=== PATIENT | male | born 1980 | race Caucasian/White ===

== ENCOUNTER 2019-01-01 12:53 | Inpatient (IN) | payer OTHER ==
[2019-01-01 13:44] VITALS: BMI 21.9
--- NOTE | 2019-01-01 15:34 | HP ---
CIWA Score - Admission Criteria [facility] Guidelines: Admission for Medically Managed Detox: Requires at least one of the followin. CIWA greater than 12 2. Seizures within the past 24 hours 3. Delirium tremens within the past 24 hours 4. Hallucinations within the past 24 hours 5. Acute intervention needed for co occurring medical disorder 6. Acute intervention needed for co occurring psychiatric disorder 7. Severe withdrawal that cannot be handled at a lower level of care (continued vomiting, continued diarrhea, abnormal vital signs) requiring intravenous medication and/or fluids 8. Admission ROS [facility] Chief Complaint: PATIENT PRESENTS FOR REHAB SERVICES FOR K2 DEPENDENCE. Allergies/Adverse Reactions: Allergies Allergy/AdvReac Type Severity Reaction Status Date / Time No Known Allergies Allergy Verified 01/01/19 14:32 History of Present Illness: PATIENT PRESENTS WITH K 2 DEPENDENCE. PATIENT HAS BEEN SMOKING K2 FOR 5 YEARS AND STATES HE ATTENDED REHAB OVER 3 YEARS AGO. PATIENT DENIES H/O SEIZURES, BLACK OUTS, FALLS AND USE OF OTHER SUBSTANCES. UDS NEGATIVE. PMH INCLUDES SCHIZOPHRENIA, DEPRESSION AND TOBACCO USE. SMOKES 1PPD/ 20 YEARS. DENIES SI/HI AND SUICIDE ATTEMPTS. REPORTS BEING ON PSYCH MEDS BUT EXTERNAL HX NEGATIVE AND PATIENT DOES NOT PRESENT WITH MEDICATIONS. Exam Limitations: No Limitations - Ebola screening Have you traveled outside of the country in the last 21 days: No Have you had contact with anyone from an Ebola affected area: No Have you been sick,other than usual withdrawal symptoms: No - Review of Systems Constitutional: Unintentional Wgt. Loss EENT: reports: No Symptoms Reported Respiratory: reports: No Symptoms reported Cardiac: reports: No Symptoms Reported GI: reports: No Symptoms Reported : reports: No Symptoms Reported Musculoskeletal: reports: No Symptoms Reported Integumentary: reports: [place] Neuro: reports: No Symptoms reported Endocrine: reports: Unexplained Weight Loss Hematology: reports: No Symptoms Reported Psychiatric: reports: Orientated x3, Depressed Patient History - Patient Medical History Hx Anemia: No Hx Asthma: No Hx Chronic Obstructive Pulmonary Disease (COPD): No Hx Cancer: No Hx Cardiac Disorders: No Hx Congestive Heart Failure: No Hx Hypertension: No Hx Hypercholesterolemia: No Hx Pacemaker: No HX Cerebrovascular Accident: No Hx Seizures: No Hx Dementia: No Hx Diabetes: No Hx Gastrointestinal Disorders: No Hx Liver Disease: No Hx Genitourinary Disorders: No Hx Sexually Transmitted Disorders: No Hx Renal Disease (ESRD): No Hx Thyroid Disease: No Hx Human Immunodeficiency Virus (HIV): No Hx Hepatitis C: No Hx Depression: Yes Hx Suicide Attempt: No Hx Bipolar Disorder: No Hx Schizophrenia: Yes (schizoaffective disorder) - Patient Surgical History Past Surgical History: Yes Hx Neurologic Surgery: No Hx Cataract Extraction: No Hx Cardiac Surgery: No Hx Lung Surgery: No Hx Breast Surgery: No Hx Breast Biopsy: No Hx Abdominal Surgery: No Hx Appendectomy: No Hx Cholecystectomy: No Hx Genitourinary Surgery: No Hx Orthopedic Surgery: No Other Surgical History: fx, nose at age 28 Anesthesia Reaction: No - PPD History Previous Implant?: Yes Documented Results: Negative w/o proof Implanted On Prior R Admission?: No PPD to be Administered?: Yes - Smoking Cessation Smoking history: Current every day smoker Have you smoked in the past 12 months: Yes Aproximately how many cigarettes per day: 20 Hx Chewing Tobacco Use: No Initiated information on smoking cessation: Yes 'Breaking Loose' booklet given: 01/01/19 - Substances Abused K2 Route: Smoking Frequency: Daily Amount used: $9 Age of first use: 28 Date of Last Use: 12/31/18 Family Disease History - Family Disease History Family Disease History: Other: Grandparent (mental illness, maternal) Admission Physical Exam BHS - Vital Signs Vital Signs: Vital Signs - 24 hr 01/01/19 13:42 Temperature 97.7 F Pulse Rate 72 Respiratory 18 Rate Blood Pressure 126/71 - Physical General Appearance: Yes: No Apparent Distress, Disheveled HEENTM: Yes: EOMI, Hearing grossly Normal, Normal ENT Inspection, Normocephalic , Normal Voice, JAYA, Pharynx Normal Respiratory: Yes: Chest Non-Tender, Lungs Clear, Normal Breath Sounds, No Respiratory Distress, No Accessory Muscle Use Neck: Yes: Within Normal Limits, No masses,lesions,Nodules, Supple, Trachea in good position Breast: Yes: Breast Exam Deferred Cardiology: Yes: Regular Rhythm, Regular Rate, S1, S2 Abdominal: Yes: Normal Bowel Sounds, Non Tender, Soft Genitourinary: Yes: Within Normal Limits Back: Yes: Normal Inspection Musculoskeletal: Yes: Within Normal Limits, full range of Motion, Gait Steady Extremities: Yes: Within Normal Limits, Normal Inspection, Normal Range of Motion, Non-Tender 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 NML intact, Fully Oriented, Alert, Motor Strength 5/5, Normal Response, Depressed Affect Integumentary: Yes: Dry, Warm, Erythema Lymphatic: Yes: Within Normal Limits - Diagnostic (1) Synthetic cannabinoid dependence Current Visit: Yes Status: Chronic (2) Schizophrenia Current Visit: Yes Status: Suspected Qualifiers: Schizophrenia type: unspecified Qualified Code(s): F20.9 - Schizophrenia, unspecified (3) Tobacco dependence Current Visit: Yes Status: Chronic (4) Depressed mood Current Visit: Yes Status: Chronic Cleared for Admission [facility] - Detox or Rehab Claeared for Rehab Admission: Yes [facility] Breath Alcohol Content Breath Alcohol Content: 0 Urine Drug Screen - Results Drug Screen Negative: Yes Inpatient Rehab Admission - Rehab Decision to Admit Inpatient rehab admission?: Yes - Initial Determination Are CD services needed?: Yes Free of communicable disease: Yes Not in need of hospitalization: Yes - Rehab Admission Criteria Previous failed treatment: Yes Poor recovery environment: Yes Comorbidities: Yes Lacks judgement: No Patient is meeting Inpatient Rehab admission criteria:: Yes
[2019-01-01] MEDS ORDERED: ACETAMINOPHEN 325 MG TABLET (FP) PO PRN (15:40)
[2019-01-01] MEDS ORDERED: P-EPHED 60MG/TRIPROLIDI 2.5MG TABLET PO PRN (15:40)
[2019-01-01] MEDS ORDERED: NICOTINE POLACRILEX 4 MG GUM BC PRN (15:40)
[2019-01-01] MEDS ORDERED: IBUPROFEN 400 MG TABLET (FP) PO PRN (15:40)
[2019-01-01] MEDS ORDERED: MENTHOL/PHENOL 1 EACH UD MM PRN (15:40)
[2019-01-01] MEDS ORDERED: guaiFENesin/D-METHORPHAN HB 10 ML UNIT-DOSE CUPS PO PRN (15:40)
[2019-01-01] MEDS ORDERED: MAG HYDROX/AL HYDROX/SIMETH 30 ML UNIT-DOSE CUP PO PRN (15:40)
[2019-01-01] MEDS ORDERED: MAGNESIUM HYDROX 2400MG/30ML ORAL SUSPENSION 30 ML CUP PO PRN (15:40)
[2019-01-01] MEDS ORDERED: MAGNESIUM CITRATE 300 ML BOTTLE PO PRN (15:40)
[2019-01-01] MEDS ORDERED: LOPERAMIDE HCL 2 MG CAPSULE PO PRN (15:40)
[2019-01-01] MEDS ORDERED: hydrOXYzine PAMOATE 50 MG CAPSULE (FP) PO PRN (15:40)
--- NOTE | 2019-01-01 16:33 | CONSULT ---
[facility] Psychiatric Consult - Data Date of interview: 01/01/19 Admission source: [facility] Identifying data: The patient is 38 years old single,no kids,homeless,supported by PA. Substance Abuse History: K2 started 7 years ago Psychiatric History: Patient is poor historian.Reports long and extensive psychiatric history started back more than 10 years ago.His first psychiatric hospitalization was about 11 yo to [place] for psychotic episode( hallucinations,bizarre delusions).patient was dx with Schizophrenia.Reports multiple psychiatric admissions.Patient wqaas on different antipsychotics.Most recent admission was a few days ago to [facility],d/c same day.Patient reports poor compliance with treatment,used to take meds on and off.Most recent:depakote 500 mg po bid,Risperdal 3 mg po hs,Celexa 20 mg po daily,Trazodone 100 mg po hs. Physical/Sexual Abuse/Trauma History: denies Mental Status Exam - Mental Status Exam Alert and Oriented to: Time, Place, Person Cognitive Function: Grossly Intact Patient Appearance: Unkempt Mood: Expansive, Irritable Affect: Mood Congruent, Labile Patient Behavior: Guarded, Cooperative Speech Pattern: Excessive Voice Loudness: Normal Thought Process: Tangential Thought Disorder: Being Controlled Hallucinations: Denies Suicidal Ideation: Denies Homicidal Ideation: Denies Insight/Judgement: Fair Sleep: Fair Appetite: Good Muscle strength/Tone: Normal Gait/Station: Normal Psychiatric Findings - Problem List ([place] 1, 2,3) (1) Synthetic cannabinoid dependence Current Visit: Yes Status: Chronic (2) Tobacco dependence Current Visit: Yes Status: Chronic (3) Schizophrenia Current Visit: Yes Status: Chronic Qualifiers: Schizophrenia type: unspecified Qualified Code(s): F20.9 - Schizophrenia, unspecified
[2019-01-01] MEDS ORDERED: TUBERCULIN PPD 5 TU/0.1ML VIAL ID ONE (16:53)
[2019-01-01] MEDS: traZODone HCL 100 MG TABLET (FP) PO SCH (21:47)
[2019-01-01] MEDS: risperiDONE 1 MG TABLET (FP) PO SCH (21:47)
[2019-01-01] MEDS: DIVALPROEX SODIUM 250 MG TABLET E.C. PO SCH (21:47)
[2019-01-01] MEDS: THIAMINE HCL 100 MG TABLET (FP) PO SCH (21:47)
[2019-01-01] MEDS ORDERED: MELATONIN 5 MG TABLETS PO PRN (22:00)
[2019-01-01 23:21] LABS: URINE APPEARANCE TURBID; URINE BILIRUBIN NEGATIVE (<2.0 mg/dL); URINE COLOR YELLOW; URINE GLUCOSE (UA) NEGATIVE (NEGATIVE); URINE KETONE TRACE (NEGATIVE); URINE LEUK ESTERASE NEGATIVE (NEGATIVE); URINE NITRITE NEGATIVE (NEGATIVE); URINE PROTEIN NEGATIVE (NEGATIVE); URINE UROBILINOGEN NEGATIVE mg/dL (0.2-1.0)
[2019-01-02] MEDS: PRENATAL VITAMINS W/ FOLIC ACID TABLET (FP) PO SCH (10:15)
[2019-01-02] MEDS: CITALOPRAM HYDROBROMIDE 20 MG TABLET (FP) PO SCH (10:15)
[2019-01-02] MEDS: DIVALPROEX SODIUM 250 MG TABLET E.C. PO SCH ×2 (10:16→21:39)
[2019-01-02] MEDS: risperiDONE 1 MG TABLET (FP) PO SCH ×2 (10:16→21:39)
[2019-01-02 10:51] LABS: HEMATOCRIT 42.6 % (35.4-49); HEMOGLOBIN 14.4 GM/dL (11.7-16.9); MCH 30.9 pg (25.7-33.7); MCHC 33.7 g/dl (32.0-35.9); MEAN CELL VOLUME 91.7 fl (80-96); MEAN PLT VOLUME 9.3 fl (7.5-11.1); PLATELET COUNT 208 K/MM3 (134-434); RBC 4.64 M/mm3 (4.00-5.60); RDW 13.3 % (11.9-15.9); WHITE BLOOD COUNT 5.1 K/mm3 (4.0-10.0)
[2019-01-02 10:53] LABS: ALK PHOS 108 U/L (45-117); ANION GAP 6 MMOL/L (8-16); BILIRUBIN,TOTAL 0.7 mg/dL (0.2-1); BLOOD UREA NITROGEN 16 mg/dL (7-18); CALCIUM 8.7 mg/dL (8.5-10.1); CHLORIDE 105 mmol/L (98-107); CO2 29 mmol/L (21-32); CREATININE 0.9 mg/dL (0.55-1.3); GLUCOSE,RANDOM 137 mg/dL (74-106); POTASSIUM 4.8 mmol/L (3.5-5.1); SGOT/AST 12 U/L (15-37); SGPT/ALT 18 U/L (13-61); SODIUM 140 mmol/L (136-145); TOT PROT 6.9 g/dl (6.4-8.2)
[2019-01-02] MEDS ORDERED: FLU VACCINE QUAD 60 MCG/0.5 ML (MDV 18-19) IM ONE (12:00)
[2019-01-02] MEDS: THIAMINE HCL 100 MG TABLET (FP) PO SCH (21:39)
[2019-01-02] MEDS: traZODone HCL 100 MG TABLET (FP) PO SCH (21:39)
[2019-01-03 06:59] VITALS: BP 138/69; PULSE 86; TEMP 97.6
[2019-01-03] MEDS: PRENATAL VITAMINS W/ FOLIC ACID TABLET (FP) PO SCH (10:26)
[2019-01-03] MEDS: CITALOPRAM HYDROBROMIDE 20 MG TABLET (FP) PO SCH (10:26)
[2019-01-03] MEDS: risperiDONE 1 MG TABLET (FP) PO SCH (10:26)
[2019-01-03] MEDS: DIVALPROEX SODIUM 250 MG TABLET E.C. PO SCH (10:26)
--- NOTE | 2019-01-03 14:29 | PN ---
[facility] Progress Note Note: CALL FROM NURSE MAYRA ABOUT THIS PATIENT WHO APPEARED "DISORGANISED" IN GROUP THIS AFTERNOON. PT HAS A HX SCHIZOPHRENIA AND ON MEDICATIONS Active Medications Generic Name Dose Route Start Last Admin Trade Name Kenrick PRN Reason Stop Dose Admin Acetaminophen 650 mg 01/01/19 15:40 Tylenol - PO Q4H PRN FEVER Al Hydroxide/Mg Hydroxide 30 ml 01/01/19 15:40 Mylanta Oral Suspension - PO Q6H PRN DYSPEPSIA Citalopram Hydrobromide 20 mg 01/02/19 10:00 01/03/19 10:26 Celexa - PO 20 mg DAILY SHAR Administration Divalproex Sodium 250 mg 01/01/19 22:00 01/03/19 10:26 Depakote - PO 250 mg BID SHAR Administration Eucalyptus/Menthol/Phenol/Sorbitol 1 each 01/01/19 15:40 Cepastat Lozenge - MM Q4H PRN SORE THROAT Guaifenesin 10 ml 01/01/19 15:40 Robitussin Dm - PO Q6H PRN COUGH Hydroxyzine Pamoate 50 mg 01/01/19 15:40 Vistaril - PO Q4H PRN AGITATION Ibuprofen 400 mg 01/01/19 15:40 Motrin - PO Q6H PRN Pain level 4-6 Loperamide HCl 4 mg 01/01/19 15:40 Imodium - PO Q6H PRN DIARRHEA Magnesium Citrate 300 ml 01/01/19 15:40 Citroma - PO Q48H PRN CONSTIPATION Magnesium Hydroxide 30 ml 01/01/19 15:40 Milk Of Magnesia - PO DAILY PRN CONSTIPATION Melatonin 5 mg 01/01/19 22:00 Melatonin PO HS PRN INSOMNIA Nicotine Polacrilex 4 mg 01/01/19 15:40 Nicorette Gum - BC Q2H PRN NICOTINE REPLACEMENT RX Multivit/Folic Acid/Iron 1 tab 01/02/19 10:00 01/03/19 10:26 Vitamins (Sjr) - PO 1 tab DAILY SHAR Administration Pseudoephedrine/Triprolidine 1 combo 01/01/19 15:40 Actifed - PO TID PRN NASAL CONGESTION Risperidone 1 mg 01/01/19 22:00 01/03/19 10:26 Risperdal - PO 1 mg BID SHAR Administration Thiamine HCl 100 mg 01/01/19 22:00 01/02/19 21:39 Vitamin B1 - PO 100 mg HS SHAR Administration Trazodone HCl 100 mg 01/01/19 22:00 01/02/19 21:39 Desyrel - PO 100 mg HS SHAR Administration . PSYCH RE-EVAL ORDERED.
--- NOTE | 2019-01-03 14:56 | PN ---
Psychiatric Progress Note Vital Signs: Vital Signs Period Temp Pulse Resp BP Sys/Hu Pulse Ox Last 24 Hr 97.6 F 86 16-18 138/69 Date of Session: 01/03/19 Chief Complaint:: " I don't want to talk. I you stay here, I'll whack you ". HPI: Case of a 38 y/o male admitted to [address] for rehabilitation treatment. Patient is abusing cannabis (K2). Co-morbid with Paranoid Schizophrenia. Mr Guzman has been increasingly agitated, hypervigilant, suspicious of others and threatening. As per records, the patient has a history of chronic non-adherence to medications and psychiatric aftercare. ROS: Ambulatory, pacing on the unit. Agitated. Refuses to interact with staff or peers. Threatening. Current Medications: Active Medications Generic Name Dose Route Start Last Admin Trade Name Freq PRN Reason Stop Dose Admin Acetaminophen 650 mg 01/01/19 15:40 Tylenol - PO Q4H PRN FEVER Al Hydroxide/Mg Hydroxide 30 ml 01/01/19 15:40 Mylanta Oral Suspension - PO Q6H PRN DYSPEPSIA Citalopram Hydrobromide 20 mg 01/02/19 10:00 01/03/19 10:26 Celexa - PO 20 mg DAILY SHAR Administration Divalproex Sodium 250 mg 01/01/19 22:00 01/03/19 10:26 Depakote - PO 250 mg BID SHAR Administration Eucalyptus/Menthol/Phenol/Sorbitol 1 each 01/01/19 15:40 Cepastat Lozenge - MM Q4H PRN SORE THROAT Guaifenesin 10 ml 01/01/19 15:40 Robitussin Dm - PO Q6H PRN COUGH Hydroxyzine Pamoate 50 mg 01/01/19 15:40 Vistaril - PO Q4H PRN AGITATION Ibuprofen 400 mg 01/01/19 15:40 Motrin - PO Q6H PRN Pain level 4-6 Loperamide HCl 4 mg 01/01/19 15:40 Imodium - PO Q6H PRN DIARRHEA Magnesium Citrate 300 ml 01/01/19 15:40 Citroma - PO Q48H PRN CONSTIPATION Magnesium Hydroxide 30 ml 01/01/19 15:40 Milk Of Magnesia - PO DAILY PRN CONSTIPATION Melatonin 5 mg 01/01/19 22:00 Melatonin PO HS PRN INSOMNIA Nicotine Polacrilex 4 mg 01/01/19 15:40 Nicorette Gum - BC Q2H PRN NICOTINE REPLACEMENT RX Multivit/Folic Acid/Iron 1 tab 01/02/19 10:00 01/03/19 10:26 Vitamins (Sjr) - PO 1 tab DAILY SHAR Administration Pseudoephedrine/Triprolidine 1 combo 01/01/19 15:40 Actifed - PO TID PRN NASAL CONGESTION Risperidone 1 mg 01/01/19 22:00 01/03/19 10:26 Risperdal - PO 1 mg BID SHAR Administration Thiamine HCl 100 mg 01/01/19 22:00 01/02/19 21:39 Vitamin B1 - PO 100 mg HS SHAR Administration Trazodone HCl 100 mg 01/01/19 22:00 01/02/19 21:39 Desyrel - PO 100 mg HS SHAR Administration Medication(s) Change(s): Currently on risperdal 2 mg po bid + depakote 500 mg po bid + citalopram 20 mg po daily. Current Side Effect: No Lab tests ordered: No Lab tests reviewed: Yes Provider note:: Called to evaluate this patient for bizarre and unpredictable behavior. Chart reviewed. Attempt made to interview the patient. Mr Guzman refused to talk to play writer and threatened to throw a piece of furniture at MD. Patient is observed talking to self, mumbling, staring vacantly into space. Found to be disorganized, incoherent, intimidating and dangerous to the therapeutic milieu. Mr Guzman is not suitable for treatment at [address] [place] [address]. Patient is acutely psychotic. He poses a clear and immediate danger to the unit ( totally out of control, throwing objects around). Agricultural Consultant contacted Dr Werner, psychiatrist at [facility] psychiatric department ([phone]) . Case discussed. Dr Werner agrees with plan to transfer the patient to the ED at [facility] (psychiatric section). EMS activated. [place] Police are called for assistance. Mr Guzman will be escorted, via EMS/YP to the psychiatric emergency department at [facility] for evaluation. Discussed with Multidisciplinary team. Total face to face time:: 35 Mental Status Exam - Mental Status Exam Additional Comments: Patient refuses to be examined. Minutes later, Mr Thomas started throwing objects around the nurse station (as per nursing staff). Psychiatric Treatment Plan - Problem List (1) Psychosis Current Visit: Yes Qualifiers: Schizophrenia type: paranoid schizophrenia Comment: Acutely psychotic. (2) Schizophrenia Current Visit: Yes Qualifiers: Schizophrenia type: paranoid schizophrenia Qualified Code(s): F20.0 - Paranoid schizophrenia (3) Synthetic cannabinoid dependence Current Visit: Yes Comment: . (4) Nicotine dependence Current Visit: Yes Comment: . (5) Substance induced mood disorder Current Visit: Yes Comment: . (6) Non-compliance with treatment Current Visit: Yes Comment: . (7) At risk for danger to others Current Visit: Yes Comment: Due to paranoia, behavioral dyscontrol and impaired judgment.
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
== END 2019-01-03 15:45 | DRG 776 ==
LOC: YASAS 12:53 → Y5N 15:43
PROVIDERS: ADMIT Neuromusculoskeletal Medicine & OMM; ATTEND Neuromusculoskeletal Medicine & OMM
DX: F19.24 Other psychoactive substance dependence with psychoactive substance-induced mood disorder (principal); F17.200 Nicotine dependence, unspecified, uncomplicated; F20.0 Paranoid schizophrenia; Z91.89 Other specified personal risk factors, not elsewhere classified; Z91.19 Patient's noncompliance with other medical treatment and regimen
CPT/HCPCS: 36415; 80053; 80164; 81003; 85027; 86593; 87389; 90688; G0008; J2794